=== PATIENT | female | born 1990 | race African-American/Black ===

== ENCOUNTER 2025-05-04 12:00 | Emergency (ER) | payer OTHER ==
[~2025-05-04] VITALS: Ht 170.2 cm; Wt 87.0 kg
[2025-05-04 12:05] VITALS: O2SAT 100
[2025-05-04 12:30] VITALS: BP 119/65; PULSE 69; RESP 16; TEMP 36.8; O2SAT 99
[2025-05-04] MEDS ORDERED: PREDNISONE 20MG TABLET PO STA (12:50)
[2025-05-04] MEDS ORDERED: LEVETIRACETAM 1000MG PREMIX 100 ML IV ONE (13:00)
[2025-05-04] MEDS ORDERED: SODIUM CHLORIDE 0.9% 1,000 ML IV ONE (13:00)
[2025-05-04] MEDS: IPRATROPIUM BROMIDE (0.02%) 0.5MG/2.5ML NEB HHN STA (13:08)
[2025-05-04] MEDS: ALBUTEROL (0.083%) 2.5MG/3ML NEB HHN STA (13:08)
== END 2025-05-04 13:04 | disposition left against medical advice (07) ==
LOC: ER 12:05
DX: R56.9 Unspecified convulsions (principal); J45.909 Unspecified asthma, uncomplicated
CPT/HCPCS: 99283; J7030; Z7610